=== PATIENT | male | born 1985 | race Caucasian/White ===

== ENCOUNTER 2020-06-11 10:56 | Emergency (ER) | payer SELFPAY ==
[2020-06-11 11:00] VITALS: BP 154/99; PULSE 76; TEMP 98.2; BMI 30.2
[2020-06-11] MEDS ORDERED: TETRACAINE 0.5% HCL 0.6ML DROPPER.BOTTLE OD ONE (11:17)
[2020-06-11] MEDS ORDERED: FLUORESCEIN NA 1 EA STRIP OD ONE (11:17)
[2020-06-11] MEDS ORDERED: TETRACAINE 0.5% OPHTH SOLN 2 ML BOTTLE ONE (11:18)
[2020-06-11] MEDS ORDERED: FLUORESCEIN NA 1 EA STRIP ONE (11:18)
--- NOTE | 2020-06-11 11:34 | PDOC ---
History of Present Illness - General Chief Complaint: Eye Problem Stated Complaint: R EYE PROBLEM Time Seen by Provider: 06/11/20 11:02 History Source: Patient Exam Limitations: Clinical Condition - History of Present Illness Initial Comments: 06/11/20 11:41 Patient with no significant past medical history present for evaluation of irritation in right eye status post doing metal work and felt like piece of the metal chips went in his right eye. Patient was not wearing any protective goggles while doing metal work. Incident happened yesterday. Patient reported taking a piece of metal from his eye yesterday. Denies blurry vision or change in vision. Denies eye pain. Denies any other symptoms Is this a multiple visit Asthma Patient?: No Timing/Duration: 24 hours Past History - Medical History Allergies/Adverse Reactions: Allergies Allergy/AdvReac Type Severity Reaction Status Date / Time No Known Allergies Allergy Verified 06/11/20 11:00 Home Medications: Ambulatory Orders Ofloxacin 0.3% Ophth Soln [Ocuflox -] 2 drop OD Q6H 5 Days #1 bottle 06/11/20 COPD: No Other medical history: DENIES - Psycho-Social/Smoking History Smoking History: Never smoked Have you smoked in the past 12 months: No Information on smoking cessation initiated: No - Substance Abuse Hx (Audit-C & DAST Scrn) How often the patient has a drink containing alcohol: Never Score: In Men: 4 or > Positive; In Women: 3 or > Positive: 0 Screen Result (Pos requires Nsg. Audit-10AR): Negative In the last yr the pt used illegal drug/Rx for NonMed reason: No Score: Yes response is considered Positive: 0 Screen Result (Positive result requires Nsg. DAST-10): Negative Review of Systems - Review of Systems Able to Perform ROS?: Yes Is the patient limited Hebrew proficient: No Constitutional: No: Chills, Fever, Malaise HEENTM: Yes: Symptoms Reported, See HPI, Eye Pain (right eye irritation). No: Blurred Vision, Tearing, Recent change in vision, Double Vision, Cataracts, Ear Pain, Ocular Prothesis, Ear Discharge, Nose Pain, Nose Congestion, Tinnitus, Nose Bleeding, Hearing Loss, Throat Pain, Throat Swelling, Mouth Pain, Dental Problems, Difficulty Swallowing, Mouth Swelling, Other Respiratory: No: Symptoms reported, See HPI, Cough, Orthopnea, Shortness of Breath, SOB with Exertion, SOB at Rest, Stridor, Wheezing, Productive cough, Hemoptysis, Other Cardiac (ROS): No: Symptoms Reported, See HPI, Chest Pain, Edema, Irregular Heart Rate, Lightheadedness, Palpitations, Syncope, Chest Tightness, Other ABD/GI: No: Symptoms Reported, Nausea, Vomiting All Other Systems: Reviewed and Negative *Physical Exam - Vital Signs Last Vital Signs Temp Pulse Resp BP Pulse Ox 98.2 F 76 18 154/99 99 06/11/20 10:58 06/11/20 10:58 06/11/20 10:58 06/11/20 10:58 06/11/20 10:58 - Physical Exam 06/11/20 11:44 GENERAL: Well developed, well nourished. Awake and alert. No acute distress. HEENT: tiny superficial corneal abrasion in right eye with exam with fluorescein stain and tetracaine. No foreign body visualized on eye exam. Pupil equal and reflective to light bilateral. 20/20 in left eye, 20/30 in right eye and 20/20 bilateral eyes on visual acuity.Normocephalic, atraumatic. NECK: Supple. Full ROM. PULMONARY: No evidence of respiratory distress. MUSCULOSKELETAL Normal range of motion at all joints. SKIN: Warm and dry. Normal capillary refill. No rashes. No jaundice. No eyelid swelling or erythema NEUROLOGICAL: Alert, awake, appropriate. Gait is normal without ataxia. PSYCHIATRIC: Cooperative. Good eye contact. Appropriate mood General Appearance: Yes: Nourished, Appropriately Dressed. No: Apparent Distress ED Treatment Course - Medications Given in the ED: ED Medications Discontinued Medications Generic Name Dose Route Start Last Admin Trade Name Klever PRN Reason Stop Dose Admin Fluorescein Sodium 1 ea 06/11/20 11:17 06/11/20 11:18 Fluorets - OD 06/11/20 11:18 1 ea ONCE ONE Administration Tetracaine HCl 1 drop 06/11/20 11:17 06/11/20 11:18 Tetravisc 0.5% Eye Drops - OD 06/11/20 11:18 1 drop ONCE ONE Administration Medical Decision Making - Medical Decision Making 06/11/20 11:42 Patient with no significant past medical history present for evaluation of irritation in right eye status post doing metal work and felt like piece of the metal chips went in his right eye. Patient was not wearing any protective goggles while doing metal work. Incident happened yesterday. Patient reported taking a piece of metal from his eye yesterday. Denies blurry vision or change in vision. Denies eye pain. Denies any other symptoms Exam significant for tiny superficial corneal abrasion in right eye with exam with fluorescein stain and tetracaine. No foreign body visualized on eye exam. Pupil equal and reflective to light bilateral. 20/20 in left eye, 20/30 in right eye and 20/20 bilateral eyes on visual acuity. Patient sent for eye irrigation to the eyewash station and report improvement of eye irritation. Patient tolerated eye irrigation well. Patient stable for discharge ofloxacin eyedrops with ophthalmology follow-up for corneal abrasion Discharge - Discharge Information Problems reviewed: Yes Clinical Impression/Diagnosis: Foreign body accidentally entering eye and adnexa Right corneal abrasion Qualifiers: Encounter type: initial encounter Qualified Code(s): S05.01XA - Injury of conjunctiva and corneal abrasion without foreign body, right eye, initial e ncounter Condition: Stable Disposition: HOME - Admission No - Additional Discharge Information Prescriptions: Ofloxacin 0.3% Ophth Soln [Ocuflox -] 2 drop OD Q6H 5 Days #1 bottle - Follow up/Referral Referrals: Osmin Shelby MD [Staff Physician] - Zach Grande MD [Staff Physician] - - Patient Discharge Instructions Patient Printed Discharge Instructions: DI for Corneal Abrasion Additional Instructions: Examination of the eyes shows a tiny scrape on your eyeball. Take prescribed antibiotic drops as prescribed. Follow-up with referred ophthalmology Print Language: PANAMANIAN - Post Discharge Activity
== END 2020-06-11 11:36 | disposition home or self-care (01) ==
LOC: JERFT 10:56
DX: S05.01XA Injury of conjunctiva and corneal abrasion without foreign body, right eye, initial encounter (principal)
CPT/HCPCS: 99283-25